=== PATIENT | female | born 1975 | race Two or more races ===

== ENCOUNTER 2023-09-17 18:53 | Emergency (ER) | payer OTHER ==
[~2023-09-17] VITALS: Ht 157.5 cm; Wt 59.0 kg
[2023-09-17] MEDS ORDERED: SYNTHROID112 MCG PO (19:05)
[2023-09-17] MEDS ORDERED: CLINDAMYCIN PHOSPHATE 150 MG/ML (600mg) IM STA (19:59)
[2023-09-17] MEDS ORDERED: KETOROLAC TROMETHAMINE 60 MG VIAL IM STA (19:59)
== END 2023-09-17 20:49 | disposition home or self-care (01) ==
LOC: ER 18:54
DX: N75.8 Other diseases of Bartholin's gland (principal)

== ENCOUNTER 2025-03-21 14:26 | Emergency (ER) | payer OTHER ==
[~2025-03-21] VITALS: Ht 160 cm; Wt 59.0 kg
[~2025-03-21 14:26] MED LIST: SYNTHROID112 MCG PO
[2025-03-21] MEDS ORDERED: ACETAMINOPHEN 325 MG TABLET PO ONE (15:15)
[2025-03-21 15:56] LABS: BASO % 0.6 % (0.1-1.2); EOS # 0.02 (0.04-0.54); EOS % 0.4 % (0.7-7.0); LYMPH # 0.40 (1.18-3.74); LYMPH % 7.7 % (19.3-53.1); MEAN PLATELET VOLUME 11.80 fl (9.4-12.4); MONO # 0.41 (0.24-0.82); MONO % 7.9 % (4.7-12.5); NEUT # 4.35 (1.56-6.13); NEUT % 83.2 % (34.0-71.1); RED CELL DISTRIBUTION WIDTH 12.9 % (11.6-14.4)
[2025-03-21 16:09] LABS: COVID-19 AG NEGATIVE (NEGATIVE)
[2025-03-21] MEDS ORDERED: BUTALB/ACETAMINOPHEN/CAFFEINE 1 TAB TABLET PO ONE (17:45)
== END 2025-03-21 17:53 | disposition home or self-care (01) ==
LOC: ER 14:26
PROVIDERS: General Practice
DX: R50.9 Fever, unspecified (principal); J00 Acute nasopharyngitis [common cold]; E03.8 Other specified hypothyroidism; Z20.822 Contact with and (suspected) exposure to COVID-19

== ENCOUNTER 2025-07-21 01:13 | Emergency (ER) | payer OTHER ==
[~2025-07-21] VITALS: Ht 160 cm; Wt 58.5 kg
[2025-07-21] MEDS ORDERED: NABUMETONE750 MG (01:16)
[2025-07-21 01:19] VITALS: BP 131/74; O2SAT 100
[2025-07-21] MEDS ORDERED: KETOROLAC TROMETHAMINE 30 MG VIAL IM STA (03:35)
[2025-07-21] MEDS ORDERED: KETOROLAC TROMETHAMINE 30 MG VIAL ONE (03:44)
[2025-07-21] MEDS ORDERED: NABUMETONE750 MG PO (04:07)
== END 2025-07-21 04:11 ==
LOC: ER 01:13
DX: S67.22XA Crushing injury of left hand, initial encounter (principal); E03.8 Other specified hypothyroidism; W31.89XA Contact with other specified machinery, initial encounter; Y93.89 Activity, other specified; Y92.018 Other place in single-family (private) house as the place of occurrence of the external cause; S46.812A Strain of other muscles, fascia and tendons at shoulder and upper arm level, left arm, initial encounter